=== PATIENT | female | born 1995 | race Caucasian/White ===

== ENCOUNTER 2017-01-28 10:57 | Emergency (ER) | payer BC ==
[~2017-01-28] VITALS: Ht 157.5 cm; Wt 104.5 kg
[2017-01-28 11:08] VITALS: Ht 157.5 cm; Wt 104.5 kg
[2017-01-28 12:17] LABS: URINE BLOOD (Dip) POC 2+ (NEGATIVE)
[2017-01-28] MEDS ORDERED: PHEN-538 PO (12:49)
[2017-01-28] MEDS ORDERED: CEPH-443 PO (12:49)
--- NOTE | 2017-01-28 12:51 | ERD ---
ER Documentation Chief Complaint Date/Time DATE: 01/28/17 TIME: 12:49 Chief Complaint Painfull urinary and frequency X 3 days. no fevers HPI 21-year-old female presents with dysuria and frequency for the last 3 days. There is no history of fevers, flank pain, abdominal pain. There is no vaginal discharge. She has slight amount of blood on the toilet tissue. She recently completed her menstrual period. ROS All systems reviewed and are negative except as per history of present illness. Medications Home Meds Active Scripts Phenazopyridine Hcl* (Pyridium*) 200 Mg Tab, 200 MG PO TID Y for URINARY PAIN, # 6 TAB Prov:JENNI US MD 01/28/17 Cephalexin* (Keflex*) 500 Mg Capsule, 500 MG PO QID for 5 Days, CAP Prov:JENNI US MD 01/28/17 Allergies Allergies: Coded Allergies: No Known Allergy (Unverified , 01/28/17) PMhx/Soc Medical and Surgical Hx: pt denies Medical Hx, pt denies Surgical Hx Hx Alcohol Use: No Hx Substance Use: No Hx Tobacco Use: No Physical Exam Vitals Vital Signs Date Time Temp Pulse Resp B/P Pulse Ox O2 Delivery O2 Flow Rate FiO2 01/28/17 11:08 98.2 85 18 123/75 95 Physical Exam Const: [], [id number]. Head: Atraumatic Eyes: Normal Conjunctiva ENT: Normal External Ears, Nose and Mouth. Neck: Full range of motion..~ No meningismus. Resp: Clear to auscultation bilaterally Cardio: Regular rate and rhythm, no murmurs Abd: Soft, non tender, non distended. Normal bowel sounds Skin: No petechiae or rashes Back: No midline or flank tenderness Ext: No cyanosis, or edema Neur: Awake and alert Psych: Normal Mood and Affect Results 24 hrs Laboratory Tests Test 01/28/17 12:22 Bedside Urine pH (LAB) 5.5 Bedside Urine Protein (LAB) 1+ Bedside Urine Glucose (UA) Negative Bedside Urine Ketones (LAB) Negative Bedside Urine Blood 2+ Bedside Urine Nitrite (LAB) Negative Bedside Urine Leukocyte Esterase (L Trace Current Medications Medications (Trade) Dose Ordered Sig/Diandra Route PRN Reason Start Time Stop Time Status Last Admin Dose Admin Cephalexin (Keflex) 500 mg ONCE ONCE PO 01/28/17 13:00 01/28/17 13:01 Phenazopyridine HCl (Pyridium) 200 mg ONCE ONCE PO 01/28/17 13:00 01/28/17 13:01 Procedures/MDM Urine shows leukocytes and hemoglobin. There is negative nitrites and glucose. HCG is negative. Patient is given Keflex 500 mg of mouth and Pyridium by mouth. Patient has signs and symptoms of acute cystitis without evidence of sepsis, acute abdomen, pyelonephritis, signs of PID or tubo-ovarian abscess. She will treated with Keflex and Pyridium at home instructions for fluids. She is advised to follow-up with primary care doctor return for fevers, vomiting, abdominal pain, new worsening symptoms. Departure Diagnosis: Primary Impression: UTI (urinary tract infection) Urinary tract infection type: acute cystitis Hematuria presence: without hematuria Qualified Code: N30.00 - Acute cystitis without hematuria Condition: Stable Patient Instructions: Understanding Urinary Tract Infections (UTIs) Additional Instructions: Urine shows signs of infection. Recheck for fevers, vomiting, new or worsening symptoms. Drink plenty of fluids at home. Follow-up with primary doctor. JENNI US MD Jan 28, 2017 12:51
[2017-01-28] MEDS ORDERED: CEPHALEXIN 500 MG CAP PO ONE (13:00)
[2017-01-28] MEDS ORDERED: PHENAZOPYRIDINE 100 MG TAB PO ONE (13:00)
== END 2017-01-28 13:06 | disposition home or self-care (01) ==
LOC: FTE 10:57
DX: N30.00 Acute cystitis without hematuria (principal)
CPT/HCPCS: 81003; 99283; Z7610

== ENCOUNTER 2017-04-30 22:00 | Emergency (ER) | payer BC ==
[~2017-04-30] VITALS: Ht 165.1 cm; Wt 102.0 kg
[~2017-04-30 22:00] MED LIST: CEPH-443 PO; PHEN-538 PO
[2017-04-30 22:20] VITALS: Ht 165.1 cm; Wt 102.0 kg
[2017-05-01] MEDS ORDERED: IBUP-1542 PO (01:16)
[2017-05-01] MEDS ORDERED: CYCL-319 PO (01:16)
--- NOTE | 2017-05-01 05:01 | ERD ---
ER Documentation Chief Complaint Date/Time DATE: 05/01/17 TIME: 04:59 Chief Complaint sudden Lt neck pain while sleeping at 0330 this am HPI Patient is a 21-year-old female presenting to the emergency department with complaints of bilateral paraspinal neck pain which began at 3:30 in the morning today. She states she felt a crack in it awoke her from sleep. She reports the pain is sharp, cramping, muscular pain. Pain is exacerbated with movement of the neck. She has taken no medication for relief of symptoms. Symptoms have been intermittent. No fevers, chills, or other symptoms reported at this time. ROS All systems reviewed and are negative except as per history of present illness. Medications Home Meds Active Scripts Ibuprofen* (Motrin*) 600 Mg Tab, 600 MG PO Q6, #30 TAB Prov:RESHMA SULLIVAN PA-C 05/01/17 Cyclobenzaprine Hcl* (Cyclobenzaprine Hcl*) 10 Mg Tablet, 10 MG PO TID, #15 TAB Prov:RESHMA SULLIVAN PA-C 05/01/17 Phenazopyridine Hcl* (Pyridium*) 200 Mg Tab, 200 MG PO TID Y for URINARY PAIN, # 6 TAB Prov:JENNI US MD 01/28/17 Cephalexin* (Keflex*) 500 Mg Capsule, 500 MG PO QID for 5 Days, CAP Prov:JENNI US MD 01/28/17 Allergies Allergies: Coded Allergies: No Known Allergy (Unverified , 04/30/17) PMhx/Soc Medical and Surgical Hx: pt denies Medical Hx, pt denies Surgical Hx Hx Alcohol Use: No Hx Substance Use: No Hx Tobacco Use: No Physical Exam Vitals Vital Signs Date Time Temp Pulse Resp B/P Pulse Ox O2 Delivery O2 Flow Rate FiO2 04/30/17 22:20 98.8 70 18 136/78 98 Physical Exam Const: Nontoxic, well-appearing female in no acute distress. Head: Atraumatic Eyes: Normal Conjunctiva ENT: Normal External Ears, Nose and Mouth. Neck: Full range of motion..~ No meningismus. Patient has mild subjective tenderness palpation of the paraspinal muscles of the C-spine. Skin: No petechiae or rashes Ext: No cyanosis, or edema Back: No midline or flank tenderness. Neur: Awake and alert Psych: Normal Mood and Affect Procedures/MDM 21-year-old female presents to the emergency department with complaints of neck pain. History and physical examination is consistent with a cervical strain. Low suspicion for meningitis, sepsis, or other emergent conditions at time of discharge. The patient was stable for outpatient management with a prescription for ibuprofen and Flexeril. She agreed with the discharge plan a diagnosis. Patient is to return immediately for any new or worsening symptoms. She is to have close follow-up with her primary care physician within the next 1-2 days. Departure Diagnosis: Primary Impression: Neck pain Condition: Fair Patient Instructions: Neck Pain, No Trauma Referrals: [facility] Additional Instructions: Follow up with your PCP within the next 1-3 days for a repeat evaluation. If you require a referral to a specialist, your Primary Care Provider may be able to provide this for you. In most patient cases, a referral is not required. If you have further questions regarding this matter, please ask your Primary Care Provider. Return the the emergency department immediately if symptoms worsen or change. If you have any questions regarding medications, ask your pharmacist or us before you leave. If any adverse reactions, occur while taking your medications, discontinue the treatment and return to the emergency department immediately. If any new or worsening symptoms, uncontrolled fevers, or other unexplained symptoms occur, return to the emergency department immediately. Take your medications as directed, and complete the entire course of treatment. RESHMA SULLIVAN PA-C May 01, 2017 05:01
== END 2017-05-01 01:29 | disposition home or self-care (01) ==
LOC: FTE 22:00
DX: M54.2 Cervicalgia (principal)
CPT/HCPCS: 99283